=== PATIENT | female | born 1995 | race Caucasian/White ===

== ENCOUNTER 2017-07-24 19:25 | Emergency (ER) | payer SELFPAY ==
[~2017-07-24] VITALS: Ht 157.5 cm; Wt 44.8 kg
[2017-07-24 19:28] VITALS: BP 119/56; PULSE 84; RESP 16; TEMP 98.2; O2SAT 100
[2017-07-24] MEDS ORDERED: SODIUM CHLOR 0.9% 1000 ML INJ 1,000 ML IV ONE (20:13)
--- NOTE | 2017-07-24 20:13 | PD ---
HPI Chief Complaint: Related Problem Time Seen by Provider: 20:04 Travel History International Travel<30 days: No Contact w/Intl Traveler<30days: No Traveled to known affect area: No History of Present Illness HPI Patient presents to the emergency department complaining of "miscarriage." Kristina Mendez the second. Last sexual intercourse was 4-5 days ago was unprotected with no history of STD. That she took 3 test and they have all been positive. Prior history of miscarriages or abortions. Been once and has 1 living child. She is complaining of intermittent crampy left abdominal pain and vaginal bleeding. She denies fever, chills, nausea, vomiting, weakness , dizziness, or any other vaginal discharge. States that her blood type is O+. PFSH Past Medical History ?: Unknown LMP: 06/24/17 : 2 Para: 1 Miscarriage: 0 : 0 Social History Alcohol Use: No Tobacco Use: No Substance Use: No Allergies-Medications (Allergen,Severity, Reaction): Coded Allergies: No Known Allergies (Unverified , 07/24/17) Reported Meds & Prescriptions Reported Meds & Active Scripts Active Macrobid (Nitrofurantoin Monohydrate Macrocrystals) 100 Mg Capsule 100 Mg PO BID 5 Days Review of Systems Except as stated in HPI: all other systems reviewed are Neg Physical Exam Narrative GENERAL: No acute distress. SKIN: Focused skin assessment warm/dry. HEAD: Atraumatic. Normocephalic. EYES: Ocular muscles intact bilaterally.. No scleral icterus. No injection or drainage. ENT: No nasal bleeding or discharge. Mucous membranes pink and moist. NECK: Trachea midline. No JVD. CARDIOVASCULAR: Regular rate and rhythm. No murmur appreciated. RESPIRATORY: No accessory muscle use. Clear to auscultation. Breath sounds equal bilaterally. GASTROINTESTINAL: Abdomen soft, non-tender, nondistended. MUSCULOSKELETAL: No obvious deformities. No clubbing. No cyanosis. No edema. NEUROLOGICAL: Awake and alert. No obvious cranial nerve deficits. Motor grossly within normal limits. Normal speech. PSYCHIATRIC: Appropriate mood and affect; insight and judgment normal. Pelvic: No CMT or adnexal tenderness, cervical os closed, positive vaginal bleeding, no cervical or vaginal lesions noted Data Data Last Documented VS Vital Signs Date Time Temp Pulse Resp B/P (MAP) Pulse Ox O2 Delivery O2 Flow Rate FiO2 07/24/17 19:28 98.2 84 16 119/56 (77) 100 Orders Orders Beta Hcg (Quant/Titer) (07/24/17 20:13) Complete Blood Count With Diff (07/24/17 20:13) Comprehensive Metabolic Panel (07/24/17 20:13) Gc And Chlamydia Pcr (07/24/17 20:13) Complete Rh (07/24/17 20:13) Us Pelvis (Ques Pr/Ect)W Trans (07/24/17 ) Wet Prep Profile (07/24/17 20:13) Urinalysis - C+S If Indicated (07/24/17 20:13) Iv Access Insert/Monitor (07/24/17 20:13) Ecg Monitoring (07/24/17 20:13) Sodium Chlor 0.9% 1000 Ml Inj (Ns 1000 M (07/24/17 20:13) Urine Culture (07/24/17 20:30) Ed Discharge Order (07/24/17 23:16) Labs Laboratory Tests Test 07/24/17 20:30 White Blood Count 8.2 TH/MM3 Red Blood Count 4.94 MIL/MM3 Hemoglobin 14.9 GM/DL Hematocrit 43.7 % Mean Corpuscular Volume 88.4 FL Mean Corpuscular Hemoglobin 30.2 PG Mean Corpuscular Hemoglobin Concent 34.1 % Red Cell Distribution Width 12.6 % Platelet Count 254 TH/MM3 Mean Platelet Volume 10.0 FL Neutrophils (%) (Auto) 64.0 % Lymphocytes (%) (Auto) 27.0 % Monocytes (%) (Auto) 6.0 % Eosinophils (%) (Auto) 1.4 % Basophils (%) (Auto) 1.6 % Neutrophils # (Auto) 5.3 TH/MM3 Lymphocytes # (Auto) 2.2 TH/MM3 Monocytes # (Auto) 0.5 TH/MM3 Eosinophils # (Auto) 0.1 TH/MM3 Basophils # (Auto) 0.1 TH/MM3 CBC Comment DIFF FINAL Differential Comment Urine Color RED Urine Turbidity CLEAR Urine pH 6.5 Urine Specific [place] 1.020 Urine Protein 100 mg/dL Urine Glucose (UA) NEG mg/dL Urine Ketones TRACE mg/dL Urine Occult Blood LARGE Urine Nitrite NEG Urine Bilirubin NEG Urine Urobilinogen 0.2 MG/DL Urine Leukocyte Esterase TRACE Urine RBC 20-24 /hpf Urine WBC 3-5 /hpf Urine WBC Clumps RARE Urine Squamous Epithelial Cells 0-5 /hpf Urine Bacteria FEW /hpf Urine Mucus MOD /lpf Microscopic Urinalysis Comment CULTURE INDICATED Clue Cells (Wet Prep) NONE SEEN Vaginal Trichomonas (Wet Prep) NONE SEEN Vaginal Yeast (Wet Prep) NONE SEEN Blood Urea Nitrogen 9 MG/DL Creatinine 0.78 MG/DL Random Glucose 85 MG/DL Total Protein 7.2 GM/DL Albumin 3.9 GM/DL Calcium Level 8.8 MG/DL Alkaline Phosphatase 82 U/L Aspartate Amino Transf (AST/SGOT) 9 U/L Alanine Aminotransferase (ALT/SGPT) 16 U/L Total Bilirubin 0.4 MG/DL Sodium Level 142 MEQ/L Potassium Level 3.8 MEQ/L Chloride Level 106 MEQ/L Carbon Dioxide Level 27.1 MEQ/L Anion Gap 9 MEQ/L Estimat Glomerular Filtration Rate 91 ML/MIN Human Chorionic Gonadotropin, Quant 24 MIU/ML [facility] Medical Decision Making Medical Screen Exam Complete: Yes Emergency Medical Condition: Yes Interpretation(s) Last Impressions Pelvis Ultrasound 07/24/17 0000 Signed Impressions: CONCLUSION: 1. of unknown location. There is no gestational sac visualized withi n the uterus. Suggest follow-up imaging and follow-up beta hCG to evaluate for appropriate progression of . 2. There is trace free fluid in the posterior cul-de-sac within the pelvis. Labs: Positive UTI, low beta hCG, Differential Diagnosis Threatened AB, incomplete AB, IUP, ectopic Narrative Course Patient presents to the emergency department reporting and vaginal bleeding. Patient placed on the cardiac nurse specialist and IV access obtained. Will give IV fluids, check labs, ultrasound. Diagnosis Primary Impression: Miscarriage Additional Impression: Urinary tract infection Qualified Codes: N39.0 - Urinary tract infection, site not specified Patient Instructions: General Instructions, Miscarriage (ED) Additional Instructions: 1. Return for repeat beta HCG and ultrasound in 48 hours. 2. Return to ER immediately for fever, abdominal pain, increase bleeding, or for any new/ worrisome/worsening symptoms. 3. Meds as directed. Med/Other Pt SpecificInfo: Prescription(s) given Scripts Nitrofurantoin Monohydrate Macrocrystals (Macrobid) 100 Mg Capsule 100 MG PO BID for Infection for 5 Days, #10 CAP 0 Refills Prov: Carmita Briggs MD 07/24/17 Disposition: 01 DISCHARGE HOME Condition: Stable Carmita Briggs MD Jul 24, 2017 20:13
[2017-07-24 20:55] LABS: BILIRUBIN, URINE NEG (NEG); BLOOD, URINE LARGE (NEG); GLUCOSE,URINE NEG (NEG); KETONE, URINE TRACE mg/dL (NEG); NITRITE,URINE NEG (NEG); PH, URINE 6.5 (5.0-8.5); URINE LEUKOCYTE ESTERASE TRACE (NEG)
[2017-07-24 20:58] LABS: URINE COLOR RED (YELLW/STRAW)
[2017-07-24 21:03] LABS: MUCUS URINE MOD /lpf (OCC)
[2017-07-24 21:04] LABS: WHITE BLOOD CELL CLUMPS RARE
[2017-07-24 21:05] LABS: BACTERIA, URINE FEW /hpf; SQUAMOUS EPITHELIAL CELL URINE 0-5 /hpf (0-5)
[2017-07-24 21:30] VITALS: BP 117/74; PULSE 78; O2SAT 99
[2017-07-24 21:37] LABS: AUTOMATED NEUTROPHIL # 5.3 TH/MM3 (1.8-7.7); BASOPHIL # 0.1 TH/MM3 (0-0.2); BASOPHIL % 1.6 % (0.0-2.0); EOSINOPHIL # 0.1 TH/MM3 (0-0.4); EOSINOPHIL % 1.4 % (0.0-4.0); HEMATOCRIT 43.7 % (35.0-46.0); HEMOGLOBIN 14.9 GM/DL (11.6-15.3); LYMPHOCYTE # 2.2 TH/MM3 (1.0-4.8); MEAN CELL VOLUME 88.4 FL (80.0-100.0); MEAN CORPUSCULAR HEMOGLOBIN 30.2 PG (27.0-34.0); MEAN CORPUSCULAR HGB CONC 34.1 % (32.0-36.0); MONOCYTE # 0.5 TH/MM3 (0-0.9); PLATELET COUNT 254 TH/MM3 (150-450); RED BLOOD COUNT 4.94 MIL/MM3 (4.00-5.30); RED CELL DISTRIBUTION WIDTH 12.6 % (11.6-17.2); WHITE BLOOD COUNT 8.2 TH/MM3 (4.0-11.0)
[2017-07-24 22:13] LABS: ALBUMIN 3.9 GM/DL (3.4-5.0); ALT (GPT) 16 U/L (10-53); AST (GOT) 9 U/L (15-37); BICARBONATE 27.1 MEQ/L (21.0-32.0); BLOOD UREA NITROGEN 9 MG/DL (7-18); CALCIUM 8.8 MG/DL (8.5-10.1); CHLORIDE 106 MEQ/L (98-107); CREATININE 0.78 MG/DL (0.50-1.00); GLOMERULAR FILTRATION RATE 91 ML/MIN (>89); GLUCOSE,RANDOM 85 MG/DL (74-106); SODIUM (NA) 142 MEQ/L (136-145)
[2017-07-24 22:17] LABS: ALKALINE PHOSPHATASE 82 U/L (45-117); TOTAL BILIRUBIN ADULT 0.4 MG/DL (0.2-1.0); TOTAL PROTEIN 7.2 GM/DL (6.4-8.2)
[2017-07-24] MEDS ORDERED: MACR100C2 PO (22:37)
--- NOTE | 2017-07-24 22:57 | RADRPT ---
EXAM DATE: 07/24/2017 10:50 PM EDT AGE/SEX: 22 years / Female INDICATIONS: Heavy vaginal bleeding. CLINICAL DATA: This is the patient's initial encounter. Patient reports that signs and symptoms have been present for 1 day and indicates a pain score of 2/10. MEDICAL/SURGICAL HISTORY: . section. COMPARISON: No prior [place] exams available for comparison. No external comparison. MEASUREMENTS: Uterus:__7.5 x 4.4 x 3.3 cm Endometrial Stripe:__4 mm Right Ovary:__ 3.3 x 2.4 x 1.9 cm Left Ovary:__ 2.9 x 1.9 x 1.5 cm FINDINGS: Uterus: The myometrium has homogeneous echotexture without mass. Uterus is retroverted. No gestatio nal sac is visualized. Right Ovary: Normal appearance with small follicles. No concerning lesion is seen. Left Ovary: Normal appearance with small follicles. No concerning lesion is seen. Other: There is trace free fluid in the posterior cul-de-sac. CONCLUSION: 1. of unknown location. There is no gestational sac visualized within the uterus. Suggest follow-up imaging and follow-up beta hCG to evaluate for appropriate progression of . 2. There is trace free fluid in the posterior cul-de-sac within the pelvis. Electronically signed by: Haseeb Shelton MD 07/24/2017 10:56 PM EDT
[2017-07-24 23:40] VITALS: BP 118/72
== END 2017-07-24 23:57 | disposition home or self-care (01) ==
LOC: PHED 19:25
DX: O03.88 Urinary tract infection following complete or unspecified spontaneous abortion (principal)
CPT/HCPCS: 76700; 76817; 80053; 81001; 84702; 85025; 86901; 87086; 87210; 87491; 87591; 96360; 96361; 99284; J7030